=== PATIENT | male | born 1980 | race Caucasian/White ===

== ENCOUNTER → 2021-04-29 | Outpatient (CLI) | payer OTHER ==
[~2021-04-29] MED LIST: CLARITIN 1010 MG/TAB PO; LEVAQUIN 5500 MG/TA1 PO; NASACORT OTC NS; PERCOCET 325 MG1 TA2 PO; PROAIR HFA0.09 MG/AC IH; ZOFRAN 4MG T4 MG/TAB PO
--- NOTE | 2021-04-29 13:25 | NUR ---
Patient needed to reschedule test as they took allergy medication less than 48 hours before test. Patient given pamphlet to reschedule.
== END ==
LOC: COL.PUL 02-16 10:00
DX: R06.02 Shortness of breath (principal)

== ENCOUNTER → 2024-01-01 | Outpatient (CLI) | payer OTHER ==
[~2024-01-01] MED LIST changes: +Albuterol 0.083% Neb Soln 2.5 MG/3 ML UD IH ONE; +Methacholine Vial A (Clear Label Base-Cntrl) IH ONE; +Methacholine Vial B (Red Label) 0.0625 MG/ML 3 ML VIAL.NEB IH ONE; +Methacholine Vial C (Orange Label) 0.25 MG/ML 3 ML VIAL.NEB IH ONE; +Methacholine Vial D (Yellow Label) 1 MG/ML 3 ML VIAL.NEB IH ONE; +Methacholine Vial E (Green Label) 4 MG/ML 3 ML VIAL.NEB IH ONE; +Methacholine Vial F (Blue Label) 16 MG/ML 3 ML VIAL.NEB IH ONE
== END ==
LOC: COL.CARD 10:27
DX: R06.02 Shortness of breath (principal)
CPT/HCPCS: J7674